=== PATIENT | male | born 1995 | race Caucasian/White ===

== ENCOUNTER 2019-05-26 10:55 | Day surgery (SDC) | payer OTHER ==
[~2019-05-26] VITALS: Ht 180.3 cm; Wt 136.1 kg
[~2019-05-26 10:55] MED LIST: CelecoXIB (CeleBREX) 100 MG CAP PO ONE; GABAPENTIN 300 MG CAP PO ONE; LR 1,000 ML IV ONE; NEUR300C PO; PERCOCET 5MG/325MG TAB PO ONE; ceFAZolin SOD 1 GM in D5W MINI-BAG PLUS 50 ML IV ONE; ceFAZolin SOD 2 GM in IV 1 EA IV ONE
[2019-05-26] MEDS ORDERED: ONDANSETRON 4MG/2ML VIAL (J2405) As Ordered ONE (11:08)
[2019-05-26] MEDS ORDERED: dexameTHASONE 4 MG/ML 1ML VIAL (J1100) As Ordered ONE (11:08)
[2019-05-26] MEDS ORDERED: ROCURONIUM BROMIDE 50 MG/5 ML VIAL As Ordered ONE ×2 (11:08→14:31)
[2019-05-26] MEDS ORDERED: LIDOCAINE 2% INJ 100 MG/5 ML SDV (FOR ANES.) As Ordered ONE (11:08)
[2019-05-26] MEDS ORDERED: PROPOFOL 200 MG/20 ML VIAL As Ordered ONE (11:08)
[2019-05-26] MEDS ORDERED: TRANEXAMIC ACID 100 MG/ML 10ML VIAL As Ordered ONE ×3 (13:26→13:29)
[2019-05-26] MEDS ORDERED: EPINEPHrine INJ 1 MG/ML 1ML VIAL As Ordered ONE (13:27)
[2019-05-26] MEDS ORDERED: BUPIVACAINE LIPOSOME/PF 1.3% 20ML VIAL (13.3MG/ML)(EXPAREL)(C9290 PER1MG) As Ordered ONE (13:27)
[2019-05-26] MEDS ORDERED: BUPIVACAINE HCL 0.25% 10 ML VIAL As Ordered ONE (13:27)
[2019-05-26] MEDS ORDERED: BUPIVACAINE/EPIN 0.5% 30 ML VIAL As Ordered ONE (13:27)
[2019-05-26] MEDS ORDERED: BACITRACIN PWD 50,000 UNITS VIAL As Ordered ONE (13:28)
[2019-05-26] MEDS ORDERED: THROMBIN SOLN 20,000 UNITS KIT As Ordered ONE (13:28)
[2019-05-26] MEDS ORDERED: fentaNYL 250 MCG/5 ML INJECTION (J3010) As Ordered ONE (13:49)
[2019-05-26] MEDS ORDERED: MIDAZOLAM INJ 2 MG/2 ML VIAL (J2250) As Ordered ONE (13:49)
[2019-05-26] MEDS ORDERED: METOCLOPRAMIDE INJ 10MG/2ML VIAL (J2765) As Ordered ONE (14:48)
[2019-05-26] MEDS ORDERED: HYDROmorphone HCL 2 MG/ML 1ML VIAL (J1170) As Ordered ONE (14:52)
[2019-05-26] MEDS ORDERED: ePHEDrine SULFATE 25 MG/5 ML(5MG/ML) SYRINGE As Ordered ONE (14:58)
[2019-05-26] MEDS ORDERED: PHENYLephrine HCL 500 MCG/5 ML (100MCG/ML) SYRINGE (J2370) As Ordered ONE (14:58)
--- NOTE | 2019-05-26 15:16 | REP ---
Single fluoroscopic lateral image: 05/26/2019. Indication: Intraoperative guidance. Comparison: None. Findings: The distal tip of the localizing instrument is posterior to the L5/S1 intervertebral disc. Impression: L5/S1 localization. Electronically Signed by Arturo Garces DO 05/26/2019 03:07 P
[2019-05-26] MEDS ORDERED: fentaNYL 100 MCG/2 ML INJECTION (J3010) IV PRN (16:45)
[2019-05-26] MEDS ORDERED: LR 1,000 ML IV SCH (16:45)
[2019-05-26] MEDS ORDERED: oxyCODONE 5MG TAB PO PRN (16:45)
[2019-05-26] MEDS ORDERED: ONDANSETRON 4MG/2ML VIAL (J2405) IV PRN (16:45)
[2019-05-26] MEDS ORDERED: PERCOCET 5MG/325MG TAB PO PRN (17:15)
[2019-05-26] MEDS ORDERED: D5W/LR 1,000 ML IV SCH (17:15)
[2019-05-26 18:18] VITALS: BP 133/74
[2019-05-26 18:44] VITALS: BP 132/74
[2019-05-26] MEDS ORDERED: ONDANSETRON 4 MG TAB (S0181) PO PRN (18:45)
[2019-05-26] MEDS ORDERED: HYDROMORPHONE HCL 0.5 MG/ 0.5 ML SYRINGE (J1170 PER 1) IV PRN (18:45)
[2019-05-26 19:45] VITALS: BP 151/84
[2019-05-26] MEDS ORDERED: PROMETHAZINE INJ 25 MG/ML VIAL (J2550) IV PRN (20:15)
[2019-05-26] MEDS: METAMUCIL (PSYLLIUM) PACKET PO SCH (20:31)
[2019-05-26] MEDS: GABAPENTIN 300 MG CAP PO SCH (20:31)
[2019-05-26 20:45] VITALS: BP 125/79
[2019-05-26 21:45] VITALS: BP 130/76
[2019-05-26 22:45] VITALS: BP 134/77
[2019-05-26] MEDS ORDERED: ceFAZolin SOD 1 GM in D5W MINI-BAG PLUS 50 ML IV ONE (23:00)
[2019-05-26] MEDS ORDERED: ceFAZolin SOD 2 GM in IV 1 EA IV ONE (23:00)
[2019-05-27 02:00] VITALS: BP 133/75
[2019-05-27] MEDS: PERCOCET 5MG/325MG TAB PO PRN ×3 (03:13→12:39)
[2019-05-27 06:00] VITALS: BP 101/62
[2019-05-27] MEDS: GABAPENTIN 300 MG CAP PO SCH (07:58)
[2019-05-27] MEDS: METAMUCIL (PSYLLIUM) PACKET PO SCH (07:59)
[2019-05-27] MEDS ORDERED: CelecoXIB (CeleBREX) 100 MG CAP PO ONE (09:00)
[2019-05-27 10:00] VITALS: BP 128/64
--- NOTE | 2019-05-29 14:55 | RO ---
DATE OF SURGERY: 05/26/2019 PREOPERATIVE DIAGNOSIS: Right lower extremity radicular pain secondary to right L5-S1 large herniated disc extruded. POSTOPERATIVE DIAGNOSIS: Right lower extremity radicular pain secondary to right L5-S1 large herniated disc extruded. PROCEDURE PERFORMED: Microdiscectomy L5-S1 right, modifier 22 appended because of body mass index of 42 increased the time and complexity of this procedure significantly. SURGEON: Kaiden Mckinney MD OPERATING MANAGER: Magdalene Van PA-C ANESTHESIA: General, Dr. Avendano. ESTIMATED BLOOD LOSS: Is less than 40 mL, replaced with crystalloid. No complications. INDICATION: Intractable discomfort radiates down the right lower extremity. MRI evidence of large disc extrusion. Symptoms going on for more than 6 weeks. The patient elects for operative intervention. Consent reviewed in detail, including a noy discussion of pathology involved, the procedure proposed, alternatives like doing nothing, risks including but not limited to pain, failure, infection, nerve injury, need for more surgery, bleeding, blood clots, and other issues. The patient agrees to proceed. DESCRIPTION OF PROCEDURE: Operative course: Identified in the holding area. Site and side verified. Because of the patient's body habitus, we elected to use the Levon frame instead of the Piyush frame, which is the usual frame for this procedure. The Levon frame facilitated better positioning of his abdomen to avoid pressure. Next, once he was brought to the operating room and general anesthesia was administered, we positioned him on the Levon frame, knees slightly flexed. Axillary rolls were utilized. Once I and the pusher runner were comfortable with the patient's positioning, he then was sterilely prepped and draped in the usual fashion. Time-out was accomplished. I stood on the patient's right. Ms. Van stood on the patient's left. The first portion of the procedure, I utilized loupe magnification and a headlamp. I infiltrated over the lumbosacral area with 0.25% Marcaine with epinephrine. The incision was based on palpation. A preliminary incision 1.5 cm was made over 4/5. The dissection continued down to the posterior lumbar fascia. Deep cerebellars were required because of body habitus. The posterior lumbar fascia was reflected off of the spinous process of 5, and dissection continued along the spinous process and lamina of 5. High speed bur was then utilized to drill a divot into the posterior lamina of 5, and a cross-table lateral x-ray was obtained against the Bowman-Gene in the divot. This verified the lamina of 5. We then developed the incision inferiorly, exposing L5-S1. Next, once this was accomplished, the Shadow-Line retractor was placed. We utilized 75 mm blades. Next, the operating microscope was sterilely draped, brought in for additional portions of the procedure. Ms. Van looked through oculars on the left, I through oculars on the right. This facilitated safe use of the high-speed bur. The high-speed bur was utilized to implement a right unilateral laminotomy of L5 extending superiorly near the bare area of 5. The medial aspect of the facet was minimally debrided, extending inferiorly to the sacrum. Curved curettes were then utilized to elevate ligamentum flavum, exposing the extruded disc. The extruded disc was actually immediately present and was displacing the thecal sac and S1 nerve root severely medially. Next, I utilized the blunt Bowman-Gene to carefully dissect around the disc and broke through the posterior longitudinal ligament disc material extruded and was removed piecemeal fashion in several sections. Next, the annulus was also ruptured, and I was able to retrieve some friable disc material from the disc space. Next, significantly decompressed the thecal sac and traversing S1 nerve root. As I was doing this, Ms. Van functioned to retract the nerve root using a suction Cedrick retractor. Bipolar cautery was utilized for hemostasis, as well as thrombin Gelfoam. All thrombin Gelfoam was removed at the conclusion of the procedure. Once we could appreciate no additional friable disc material, I verified the right foramen was patent, irrigated including irrigation with bacitracin. I utilized Exparel solution in the subcuticular tissues for perioperative pain control. We closed the wound with interrupted 0 Vicryl stitch. This required Meyerding and other retractors for exposure because of body habitus. The dermis was approximated with interrupted Vicryl stitch. A Pernio dressing was applied on skin. The patient was then log-rolled to the hospital bed. He was able to be extubated and moved to recovery room in good condition. For further details, please refer to the medical record.
== END 2019-05-27 12:50 | disposition home or self-care (01) ==
LOC: M SDC 10:55 → M MS5PR 18:20 → M SDC 05-27 12:50
PROVIDERS: ATTEND Orthopaedic Surgery
DX: M51.27 Other intervertebral disc displacement, lumbosacral region (principal); F32.9 Major depressive disorder, single episode, unspecified; Z79.899 Other long term (current) drug therapy; F17.218 Nicotine dependence, cigarettes, with other nicotine-induced disorders
CPT/HCPCS: 36415; 63030; 76000; 86850; 86900; 86901; 88304; 96361; 96365; 96366; 96375; C9290; J0690; J1100; J1170; J2250; J2370; J2405; J2765; J3010

== ENCOUNTER → 2019-06-12 | Outpatient (REF) | payer OTHER ==
[~2019-06-12] MED LIST changes: -CelecoXIB (CeleBREX) 100 MG CAP PO ONE; -GABAPENTIN 300 MG CAP PO ONE; -LR 1,000 ML IV ONE; -PERCOCET 5MG/325MG TAB PO ONE; -ceFAZolin SOD 1 GM in D5W MINI-BAG PLUS 50 ML IV ONE; -ceFAZolin SOD 2 GM in IV 1 EA IV ONE
[2019-06-12 18:19] LABS: BASO # 0.1 10^3/uL (0.0-0.2); BASO % 0.7 % (0.0-1.0); EOS # 0.2 10^3/uL (0.0-0.5); EOS % 2.1 % (0.0-3.0); HEMATOCRIT 44.8 % (42.0-52.0); HEMOGLOBIN 15.1 g/dl (13.5-17.5); LYMPH # 2.4 10^3/uL (1.5-5.0); LYMPH % 33.3 % (24.0-44.0); MEAN CORPUSCULAR HEMOGLOBIN 29.8 pg (27.0-33.0); MEAN CORPUSCULAR HGB CONC 33.7 g/dl (32.0-36.5); MEAN CORPUSCULAR VOLUME 88.5 fl (80.0-96.0); MONO # 0.5 10^3/uL (0.0-0.8); MONO % 7.5 % (0.0-5.0); NEUTROPHILS % 55.6 % (36.0-66.0); PLATELET COUNT, AUTOMATED 341 10^3/uL (150-450); RED BLOOD COUNT 5.06 10^6/uL (4.30-6.10); WHITE BLOOD COUNT 7.1 10^3/uL (4.0-10.0)
[2019-06-12 18:47] LABS: ERYTHROCYTE SEDIMENTATION RATE 23 mm/hr (0-15)
[2019-06-12 19:58] LABS: MUCIN CLOT TEST 3+ (4+)
[2019-06-12 20:15] LABS: SOURCE, BODY FLUID OTHER; SYNOVIAL FLUID COLOR AMBER (YELLOW)
[2019-06-12 20:30] LABS: CRYSTALS, BODY FLUID NONE SEEN (NONE SEEN)
[2019-06-12 20:34] LABS: URIC ACID, BODY FLUID 6.8 MG/DL (NOT ESTABLISHED)
[2019-06-13 10:31] LABS: BODY FLUID RHEUMATOID SCREEN NEGATIVE (NEGATIVE)
== END ==
LOC: M LABDRAW1 17:14
PROVIDERS: ATTEND Physician Assistant
DX: Z47.89 Encounter for other orthopedic aftercare (principal)